=== PATIENT | female | born 1955 | race Caucasian/White ===

== ENCOUNTER 2017-08-29 18:45 | Emergency (ER) | payer OTHER, SELFPAY ==
[2017-08-29 18:46] VITALS: BP 201/115; PULSE 98; RESP 18; TEMP 36.8; O2SAT 98; BMI 33.9
[2017-08-29 18:55] VITALS: BP 190/93; PULSE 99; RESP 15; O2SAT 99
--- NOTE | 2017-08-29 19:10 | EKG12_ITS ---
Test Reason : HTN Blood Pressure : / mmHG Vent. Rate : 088 BPM Atrial Rate : 088 BPM P-R Int : 160 ms QRS Dur : 092 ms QT Int : 374 ms P-R-T Axes : 063 -06 023 degrees QTc Int : 452 ms Normal sinus rhythm Normal ECG No previous ECGs available Confirmed by GASTON PINEDA ([id number]), index editor ELI AKBAR ([id number]) on 09/07/2017 2:49:03 PM Referred By: DAREK Confirmed By:GASTON PINEDA
--- NOTE | 2017-08-29 19:12 | RAD_ITS ---
STUDY: X-RAY CHEST REASON FOR EXAM: Female, 62 years old. High blood pressure. TECHNIQUE: Single AP portable view of the chest. COMPARISON: Prior comparison studies are not available for review at this time. FINDINGS: Cardiac monitoring leads are present. The lungs are expanded. There is perihilar interstitial thickening present in both lungs. There is no demonstrated pleural abnormality. There is borderline cardiomegaly. There are calcified mediastinal and hilar lymph nodes. There is prominence of the pulmonary hilar arteries without peripheral pulmonary vascular congestion. There is atherosclerotic tortuosity of the aortic arch and descending thoracic aorta. There is demineralization of the osseous structures. Normal visualized ribs, clavicles, and shoulders. There is no demonstrated abnormality of the visualized soft tissue structures of the upper abdomen. RAD/Chest 1 View (Portable) IMPRESSION: Borderline cardiomegaly and mild pulmonary congestion. Electronically Signed: Miriam Maier MD at 19:32 EDT , Service support ,
--- NOTE | 2017-08-29 19:14 | NURSING ---
NO OLD EKG'S IN MUSE
[2017-08-29] MEDS: 0.9% Normal Saline 1,000 ML 15 ML IV (19:28)
[2017-08-29 19:42] LABS: Absolute Lymphocyte Count 1.93 X10^3/ul (0.83-4.51); Absolute Neutrophil Count 5.2 X10^3/uL (2.0-7.7); Basophil# 0.03 X10^3/uL; Basophil% 0.4 % (0-1); Eosinophil# 0.44 X10^3/uL; Eosinophils% 5.5 % (0-5); Hematocrit 42.5 % (37-47); Hemoglobin 13.9 g/dl (12.0-15.0); Lymphocyte # 1.93 X10^3/ul (4.0); Mean Corp Hgb Conc 32.7 g/gl (32-36); Mean Corpuscular Hgb 29.5 pg (27.0-32.0); Mean Corpuscular Volume 90.2 fL (81-99); Mean Platelet Vol. 9.9 fl (6.2-12.0); Monocyte# 0.39 X10^3/uL; Monocyte% 4.9 % (0-10); Neutrophil # 5.24 X10^3/uL (2.7-7.7); Neutrophil % 65.1 % (47-70); Platelet Count 292 K/mm3 (150-450); RBC Distribution Width CV 14.1 % (11.6-14.6); RBC Distribution Width SD 46.4 fl (35.1-43.9); Red Blood Count 4.71 M/mm3 (4.2-5.4)
[2017-08-29 20:03] LABS: POSITIVE COUNT NO; POSITIVE DIFFERENTIAL NO; POSITIVE MORPHOLOGY NO
[2017-08-29 20:24] LABS: Anion Gap 6 (5-15); BUN 15 mg/dL (7-18); Calcium,Total 9.2 mg/dL (8.5-10.1); Chloride 109 mmol/L (98-107); Creatinine, Serum 0.94 mg/dL (0.55-1.02); EST Glomerular Filtration Rate 64 mL/min (>60); Est Glom Filt Rate - Afr Amer 78 mL/min (>60); Estimated Creatinine Clearance 58.09 ml/min; Glucose 96 mg/dL (74-106); Potassium 4.5 mmol/L (3.5-5.1); Sodium Level 142 mmol/L (136-145)
[2017-08-29 20:55] VITALS: BP 141/81; PULSE 75; RESP 16; O2SAT 95
--- NOTE | 2017-08-29 21:10 | ED.DCSUM_ITS ---
- ER Visit Summary Date of Service: 08/29/17 Chief Complaint: Hypertension History of Present Illness: The patient is a 62 F with elevated blood pressure tonight. She states she did take a dose of her blood pressure medication but did not have any significant improvement. She checks her blood pressure at home twice a day. She takes her blood pressure medication only when her levels are elevated. Patient states that she has had pain along the left lateral chest wall today. It is not worsened by movement or with breathing. Patient does admit to increased stress recently with the of a family member. She is also significantly increased her caffeine intake and states today she had 8 cups of coffee. She normally only drinks 3. Physical Examination: Blood pressure on arrival is 201/115, temperature 98.3, heart rate 98, respiratory rate 18, pulse ox 98% on room air. Head neck examination is unremarkable. Heart is regular rate and rhythm. Lung sounds are clear. I cannot reproduce any chest wall tenderness. Abdomen is soft nontender. Neuro exam is normal. Strong distal pulses are noted and equal throughout. Test Results: EKG is sinus 88 with no sign of acute ischemia. Chest x-ray shows borderline cardiomegaly and mild pulmonary congestion. To be seen chemistry studies are normal. Troponin is less than 0.02. Emergency Department Course and Treatment: Patient was given 10 mg of IV hydralazine. On repeat evaluation blood pressure was still elevated to the 170 range systolic. I had ordered additional hydralazine however repeat blood pressure when nurse went to give it was 141/81. At this point I advised the patient would rather let her blood pressure run a little high than drop her too low if we give her additional medication. She understands this. Patient will cut back on the caffeine and monitor her blood pressures. Treatment Plan: [] Disposition: Discharge Impression: Hypertension This note was generated with [employer] dictation software. It may contain incorrect words, spelling, and punctuation that were not noted in review of the chart prior to signing ED Disposition - Plan for ED Patient: Disposition: Home or Assisted Living Chief Complaint: Hypertension Instructions: ED HTN Established Referrals: Pepe Murray MD [Primary Care Provider] - 1 Week Additional Instructions: Monitor your caffeine intake over the next week. Monitor your blood pressure twice a day. Return for worsening symptoms. Follow-up with your family doctor.
[2017-08-29 21:30] VITALS: BP 187/96; PULSE 111; RESP 16; O2SAT 96
== END 2017-08-29 21:39 | disposition home or self-care (01) ==
PROVIDERS: Emergency Provider Emergency Medicine; Family Provider Family Medicine; PCP Family Medicine
DX: I10 Essential (primary) hypertension (principal); I51.7 Cardiomegaly; R09.89 Other specified symptoms and signs involving the circulatory and respiratory systems; Z63.4 Disappearance and death of family member
CPT/HCPCS: 71045; 80048; 84484; 85025; 93005; 96374; 96376; 99284; J7030